=== PATIENT | female | born 1980 | race Caucasian/White ===

== ENCOUNTER 2016-04-30 07:56 | Day surgery (SDC) | payer OTHER ==
[~2016-04-30 07:56] MED LIST: LACTATED RINGERS 1,000 ML IVS ONE
[2016-04-30] MEDS ORDERED: PROPOFOL 200 MG/20 ML VIAL IV ONE (10:00)
--- NOTE | 2016-04-30 10:02 | OP ---
DATE OF PROCEDURE: 04/30/16 PREOPERATIVE DIAGNOSIS: 1. Epigastric pain, etiology undetermined. POSTOPERATIVE DIAGNOSIS: 1. Epigastric pain, etiology undetermined. PROCEDURE: 1. Esophagogastroduodenoscopy and biopsy. SURGEON: Dinesh Cazares MD. SEDATION: Monitored anesthesia care. INDICATION: Persistent abdominal pain unresponsive to proton pump inhibitor usage. Negative CT, sonogram, and studies. Previous cholecystectomy to not provide any pain relief. DESCRIPTION OF PROCEDURE: With the patient under sedation, the endoscope was introduced. The posterior pharynx appears normal. Vocal cords appear unremarkable. Z-line at 40 cm from gumline. The esophagus is totally normal. No hiatal hernia, ulceration, inflammation, or stricture. Minimal reflux present. Normal cardia, fundus, body, and antrum of the stomach. No evidence of any infiltrative disease, ulcer disease, or active gastritis. Biopsy was obtained from the body to exclude H. pylori and gastritis. Pylorus, duodenal bulb, first, second and third part of the duodenum are normal. Duodenal mucosa is unremarkable with no evidence to suggest celiac disease. The patient tolerated the procedure well. IMPRESSION: 1. Unremarkable upper endoscopy other than minimal reflux. No evidence of esophagitis. Source of abdominal pain unclear. 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 No anatomical abnormality. RECOMMENDATION: Trial of Librax and probiotic. #[id number] cc: Hattie Lima Ms. Desibharath Cazares MD [facility]
== END 2016-04-30 09:35 | disposition home or self-care (01) ==
LOC: AMB 07:56
PROVIDERS: ATTEND Internal Medicine Gastroenterology
DX: K29.50 Unspecified chronic gastritis without bleeding (principal); K21.9 Gastro-esophageal reflux disease without esophagitis; E11.9 Type 2 diabetes mellitus without complications; E78.00 Pure hypercholesterolemia, unspecified; I10 Essential (primary) hypertension; E66.9 Obesity, unspecified; F17.210 Nicotine dependence, cigarettes, uncomplicated; Z68.42 Body mass index [BMI] 45.0-49.9, adult; Z80.0 Family history of malignant neoplasm of digestive organs; Z88.6 Allergy status to analgesic agent; Z79.899 Other long term (current) drug therapy
CPT/HCPCS: 00740; 36416; 43239; 82948; J3490; J7120